=== PATIENT | male | born 1955 | race Caucasian/White ===

== ENCOUNTER → 2016-06-25 | Outpatient (REF) | payer MEDICARE, MEDICAID ==
[~2016-06-25] MED LIST: /LOR25TA PO; ASPI81TA85 PO; BACL10TA2 PO; CARBAMAZEPINE PO; CENTTAB12 PO; CENTTAB16 PO; COLA50CA3 PO; CYMB60CA3 PO; FOLI1TAB86 PO; IBUP200C PO; LEVE500T2 PO; MULTCAP PO; OMEP20CA3 PO; OYSCTAB PO; PERC7.5T12 PO; SERT-141 PO; TAMS0.4C PO; TEGR200T PO; TYLE325T5 PO; VESI5TAB PO
== END ==
LOC: M LAB REF 16:38
PROVIDERS: ATTEND Nurse Practitioner Adult Health
DX: R56.9 Unspecified convulsions (principal)

== ENCOUNTER → 2016-09-07 | Outpatient (CLI) | payer MEDICARE, MEDICAID | LOC: M WUC 14:49 | PROVIDERS: ATTEND Nurse Practitioner Adult Health | DX: M25.561 Pain in right knee (principal) ==

== ENCOUNTER → 2016-09-30 | Outpatient (CLI) | payer MEDICARE, MEDICAID ==
--- NOTE | 2016-09-30 15:40 | REP ---
RIGHT WRIST, FOUR VIEWS: HISTORY: Pain. There is a nondisplaced intra-articular fracture of the distal radius. There is no dislocation. There is narrowing of the radial carpal joint space. Ossified densities are present adjacent to the distal ulna. These represent old avulsion fracture fragments or ligamentous or tendon calcification. IMPRESSION: Fracture of the distal radius. Signed by Vish Peña MD 09/30/2016 03:51 P
--- NOTE | 2016-10-06 17:05 | REP ---
RIGHT FOREARM: Two views of the right forearm are performed. They are submitted to fl for dictation 10/06/2016. There is a nondisplaced fracture of the distal radius. No other acute fracture or dislocation is seen. IMPRESSION: Nondisplaced fracture, distal end of the radius. Signed by Alfred Cutler MD 10/07/2016 03:48 P
== END ==
LOC: M WUC 14:47
PROVIDERS: ATTEND Nurse Practitioner Adult Health
DX: S52.509A Unspecified fracture of the lower end of unspecified radius, initial encounter for closed fracture (principal); W18.30XA Fall on same level, unspecified, initial encounter; Y92.009 Unspecified place in unspecified non-institutional (private) residence as the place of occurrence of the external cause

== ENCOUNTER → 2017-02-16 | Outpatient (REF) | payer MEDICARE, MEDICAID | LOC: M LAB REF 17:45 | PROVIDERS: ATTEND Nurse Practitioner Adult Health | DX: R56.9 Unspecified convulsions (principal) ==

== ENCOUNTER → 2017-09-23 | Outpatient (REF) | payer MEDICARE, MEDICAID ==
[2017-09-23 19:10] LABS: CARBAMAZEPINE (TEGRETOL) LEVEL 7.8 UG/ML (4.0-10.0)
[2017-09-26 15:40] LABS: LEVETIRACETAM (KEPPRA) 9.2 ug/mL (10.0-40.0)
== END ==
LOC: M LAB REF 17:09
DX: R56.9 Unspecified convulsions (principal)
CPT/HCPCS: 80156

== ENCOUNTER → 2018-12-13 | Outpatient (CLI) | payer MEDICARE, MEDICAID ==
[2018-12-13 17:18] LABS: BLOOD UREA NITROGEN 14 MG/DL (7-18); CALCIUM LEVEL 9.5 MG/DL (8.8-10.2); CARBON DIOXIDE LEVEL 30 MEQ/L (21-32); CHLORIDE LEVEL 101 MEQ/L (98-107); CREATININE FOR GFR 0.67 MG/DL (0.70-1.30); GLOMERULAR FILTRATION RATE > 60.0 (>49); GLUCOSE, FASTING 89 MG/DL (70-100); POTASSIUM SERUM 4.5 MEQ/L (3.5-5.1); SODIUM LEVEL 140 MEQ/L (136-145)
[2018-12-13 19:24] LABS: APPEARANCE, URINE HAZY (CLEAR); BACTERIA, URINE AUTO NEGATIVE (NEGATIVE); BILIRUBIN, URINE AUTO NEGATIVE (NEGATIVE); BLOOD, URINE BLOOD NEGATIVE (NEGATIVE); COLOR, URINE YELLOW (YELLOW); GLUCOSE, URINE (UA) AUTO NEGATIVE (NEGATIVE); KETONE, URINE AUTO NEGATIVE (NEGATIVE); LEUKOCYTE ESTERASE, URINE AUTO NEGATIVE (NEGATIVE); MUCUS, URINE SMALL (NEGATIVE); NITRITE, URINE AUTO NEGATIVE (NEGATIVE); PROTEIN, URINE AUTO NEGATIVE (NEGATIVE); RBC, URINE AUTO 0 /HPF (0-3); SPECIFIC GRAVITY URINE AUTO 1.019 (1.002-1.035); SQUAMOUS EPITHELIAL CELL UR AU 1 /HPF (0-6); TRIPLE PHOSPHATE CRYSTALS SMALL; UROBILINOGEN, URINE AUTO 0.2 mg/dL (0.0-2.0); WBC, URINE AUTO 1 /HPF (0-3)
== END ==
LOC: M SMT 13:47
PROVIDERS: ATTEND Nurse Practitioner Family
DX: R31.9 Hematuria, unspecified (principal)
CPT/HCPCS: 36415; 80048; 81001; 87086; 88108; G0463

== ENCOUNTER → 2018-12-18 | Outpatient (CLI) | payer MEDICARE, MEDICAID ==
[~2018-12-18] MED LIST changes: +ISOVUE-370 76% 100ML VIAL (Q9967) As Ordered ONE
--- NOTE | 2018-12-18 13:50 | REP ---
CT of the abdomen pelvis without and with IV contrast, without bowel contrast: After IV contrast dual phase imaging is performed. CT urogram protocol. Comparison is 02/06/2013. There are no renal calculi. There is no hydronephrosis. There are no ureteral calculi. There are no bladder calculi. There are no solid or cystic renal masses. No bladder masses are identified by CT. The patient has clinical history of prostate carcinoma. 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 The the visualized lung quick are unremarkable. The hepatic parenchyma, gallbladder, pancreas, spleen, and adrenals are unremarkable and unchanged. The abdominal aorta is unremarkable. There is no periaortic adenopathy or mass. There is wall thickening of distal small bowel loops. This is compatible with enteritis in the appropriate clinical setting. The bowel loops and mesentery are otherwise unremarkable. Pelvis: The pelvic bowel loops are unremarkable. The patient reportedly has an appendectomy. The appendiceal stump is unremarkable. There is no pelvic ascites. There is no pelvic adenopathy. There are no lytic, blastic or destructive skeletal changes. There is degenerative disc disease throughout the lumbar spine. 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 There is no adenopathy or ascites. There are no masses. There is wall thickening of distal small bowel loops. This is compatible with enteritis in the appropriate clinical setting. There are no renal calculi. There are no ureteral or bladder calculi. There is no hydronephrosis. There are no solid or cystic renal masses. No bladder masses are identified. There are no lytic, blastic or destructive skeletal changes. There is degenerative disc disease throughout the lumbar spine. Electronically Signed by Alfred Garcia MD 12/18/2018 01:41 P
== END ==
LOC: M RAD 09:14
PROVIDERS: ATTEND Nurse Practitioner Family
DX: R31.9 Hematuria, unspecified (principal)
CPT/HCPCS: 74178; Q9967

== ENCOUNTER → 2019-01-11 | Outpatient (REF) | payer MEDICARE, MEDICAID ==
[~2019-01-11] MED LIST changes: +AMLO5TAB6 PO; +ASPI81CH33 PO; +ATOR1TAB21 PO; +CARB20TA PO; +CENT1TAB PO; +DULO1CAP6 PO; +FLOM0.4C39 PO; +FOLI1TAB11 PO; -ISOVUE-370 76% 100ML VIAL (Q9967) As Ordered ONE; +KEPP1TAB PO; +MULTTAB61 PO; +OMEP-218 PO; +OS-CTAB3 PO
== END ==
LOC: M LAB REF 17:24
PROVIDERS: ATTEND Nurse Practitioner Adult Health
DX: G40.909 Epilepsy, unspecified, not intractable, without status epilepticus (principal)

== ENCOUNTER 2019-02-02 10:41 | Day surgery (SDC) | payer MEDICARE, MEDICAID ==
[~2019-02-02] VITALS: Ht 165.1 cm; Wt 112.0 kg
[~2019-02-02 10:41] MED LIST changes: +LR 1,000 ML IV ONE; +ceFAZolin SOD 2 GM in IV 1 EA IV ONE
[2019-02-02] MEDS ORDERED: ONDANSETRON 4MG/2ML VIAL (J2405) As Ordered ONE (13:53)
[2019-02-02] MEDS ORDERED: dexameTHASONE 4 MG/ML 1ML VIAL (J1100) As Ordered ONE (13:53)
[2019-02-02] MEDS ORDERED: LIDOCAINE 2% INJ 100 MG/5 ML SDV (FOR ANES.) As Ordered ONE (13:53)
[2019-02-02] MEDS ORDERED: PROPOFOL 200 MG/20 ML VIAL As Ordered ONE (13:53)
[2019-02-02] MEDS ORDERED: MIDAZOLAM INJ 2 MG/2 ML VIAL (J2250) As Ordered ONE (13:55)
[2019-02-02] MEDS ORDERED: fentaNYL 100 MCG/2 ML INJECTION (J3010) As Ordered ONE (13:56)
[2019-02-02] MEDS ORDERED: BUPIVACAINE HCL 0.25% 30 ML VIAL As Ordered ONE (14:27)
[2019-02-02] MEDS ORDERED: PHENYLephrine HCL 500 MCG/5 ML (100MCG/ML) SYRINGE (J2370) As Ordered ONE (15:11)
[2019-02-02] MEDS ORDERED: ePHEDrine SULFATE 25 MG/5 ML(5MG/ML) SYRINGE As Ordered ONE (15:15)
[2019-02-02] MEDS ORDERED: LR 1,000 ML IV SCH (16:00)
[2019-02-02] MEDS ORDERED: PERCOCET 5MG/325MG TAB PO PRN (16:00)
[2019-02-02] MEDS ORDERED: IBUPROFEN 600 MG TAB PO PRN (16:00)
[2019-02-02] MEDS ORDERED: NS 1,000 ML IV SCH (16:00)
[2019-02-02] MEDS ORDERED: ONDANSETRON 4MG/2ML VIAL (J2405) IV PRN (16:00)
[2019-02-02] MEDS ORDERED: fentaNYL 100 MCG/2 ML INJECTION (J3010) IV PRN (16:00)
[2019-02-02 16:10] VITALS: BP 148/65
--- NOTE | 2019-02-05 08:53 | RO ---
DATE OF SURGERY: 02/02/2019 PREOPERATIVE DIAGNOSIS: Phimosis. POSTOPERATIVE DIAGNOSIS: Phimosis. PROCEDURE: Circumcision. SURGEON: Dr. Guanaco Haque TRY ON BASTER: ANESTHESIA: Local Marcaine. INDICATION FOR OPERATION: This is a 63year-old white male with severe phimosis, and therefore, brought to the operating room for circumcision. DESCRIPTION OF OPERATION: The patient was placed on the table in the supine position and given general anesthesia. He was then prepped with Betadine paint and draped in a sterile manner. Time-out was then performed. A hemostat was passed down the phimotic opening of the foreskin and clamped in the dorsal midline. An incision was then made and the skin was able to be retracted and the area cleansed. Foreskin was then reduced and the dorsal clamp line was extended and cut. A ventral clamp line was similarly made to the frenulum and incised. The excess foreskin was then removed with curved Morris scissors. Hemostasis was achieved with cauterization and #3-0 chromic ties. The skin edges were then approximated with interrupted with sutures of #3-0 chromic and the penis was anesthetized with 0.25% Marcaine without epinephrine. A Xeroform and Kerlix dressing was applied, and the patient was awakened and sent to recovery room in stable condition having tolerated procedure well. DRAINS: None. ESTIMATED BLOOD LOSS: 10 mL TRANSFUSION: None. COMPLICATIONS: None MTDD
== END 2019-02-02 17:10 | disposition home or self-care (01) ==
LOC: M SDC 10:41
PROVIDERS: ATTEND Urology
DX: N47.1 Phimosis (principal); G47.33 Obstructive sleep apnea (adult) (pediatric); I10 Essential (primary) hypertension; K21.9 Gastro-esophageal reflux disease without esophagitis; G40.909 Epilepsy, unspecified, not intractable, without status epilepticus; E66.01 Morbid (severe) obesity due to excess calories; Z68.41 Body mass index [BMI] 40.0-44.9, adult; F32.9 Major depressive disorder, single episode, unspecified; E78.00 Pure hypercholesterolemia, unspecified; M19.90 Unspecified osteoarthritis, unspecified site; Z85.46 Personal history of malignant neoplasm of prostate; M48.061 Spinal stenosis, lumbar region without neurogenic claudication; M47.816 Spondylosis without myelopathy or radiculopathy, lumbar region; Z86.718 Personal history of other venous thrombosis and embolism; Z86.61 Personal history of infections of the central nervous system; Z79.899 Other long term (current) drug therapy; Z79.82 Long term (current) use of aspirin
CPT/HCPCS: 54161; 88302; J0690; J1100; J2250; J2370; J2405; J3010

== ENCOUNTER → 2019-03-02 | Outpatient (REF) | payer MEDICARE, MEDICAID ==
[~2019-03-02] MED LIST changes: -LR 1,000 ML IV ONE; -ceFAZolin SOD 2 GM in IV 1 EA IV ONE
[2019-03-02 18:38] LABS: APPEARANCE, URINE HAZY (CLEAR); BACTERIA, URINE AUTO NEGATIVE (NEGATIVE); BILIRUBIN, URINE AUTO NEGATIVE (NEGATIVE); BLOOD, URINE BLOOD NEGATIVE (NEGATIVE); CALCIUM OXALATE CRYSTALS LARGE; COLOR, URINE YELLOW (YELLOW); GLUCOSE, URINE (UA) AUTO NEGATIVE (NEGATIVE); KETONE, URINE AUTO TRACE mg/dL (NEGATIVE); LEUKOCYTE ESTERASE, URINE AUTO NEGATIVE (NEGATIVE); MUCUS, URINE SMALL (NEGATIVE); NITRITE, URINE AUTO NEGATIVE (NEGATIVE); PROTEIN, URINE AUTO NEGATIVE (NEGATIVE); RBC, URINE AUTO 0 /HPF (0-3); SPECIFIC GRAVITY URINE AUTO 1.027 (1.002-1.035); SQUAMOUS EPITHELIAL CELL UR AU 0 /HPF (0-6); UROBILINOGEN, URINE AUTO 0.2 mg/dL (0.0-2.0); WBC, URINE AUTO 0 /HPF (0-3)
== END ==
LOC: M SMT 17:17
PROVIDERS: ATTEND Nurse Practitioner Family
DX: R39.15 Urgency of urination (principal)
CPT/HCPCS: 51798; 81001; 87086; G0463

== ENCOUNTER → 2020-01-07 | Outpatient (REF) | payer MEDICARE, MEDICAID ==
[~2020-01-07] MED LIST changes: +AMLO1TAB24 PO; -AMLO5TAB6 PO
[2020-01-07 18:57] LABS: EOSINOPHILS 1 % (0-3); LYMPHOCYTES 14 % (16-44); MONOCYTES 4 % (0-5); NEUTROPHILS 81 % (28-66)
[2020-01-07 18:58] LABS: PLATELET ESTIMATE NORMAL (NORMAL)
== END ==
LOC: M LAB REF 16:10
PROVIDERS: ATTEND Nurse Practitioner Adult Health
DX: C61 Malignant neoplasm of prostate (principal); G47.33 Obstructive sleep apnea (adult) (pediatric); G40.909 Epilepsy, unspecified, not intractable, without status epilepticus

== ENCOUNTER → 2020-05-14 | Outpatient (REF) | payer MEDICARE, MEDICAID ==
[2020-05-14 17:43] LABS: TOTAL PROTEIN 7.8 GM/DL (6.4-8.2)
[2020-05-16 14:28] LABS: ALBUMIN 4.17 GM/DL (3.29-5.55); ALBUMIN % 53.5 % (55.8-66.1); ALPHA-1-GLOBULIN % 4.5 % (2.9-4.9); ALPHA-1-GLOBULINS 0.35 GM/DL (0.17-0.41); ALPHA-2-GLOBULINS 1.01 GM/DL (0.42-0.99); BETA-1-GLOBULINS 0.41 GM/DL (0.28-0.60); BETA-1-GLOBULINS % 5.3 % (4.7-7.2); BETA-2-GLOBULINS 0.58 GM/DL (0.19-0.55); BETA-2-GLOBULINS % 7.4 % (3.2-6.5); GAMMA GLOBULIN % 16.3 % (11.1-18.8); GAMMA GLOBULINS 1.27 GM/DL (0.65-1.58)
== END ==
LOC: M LAB REF 16:26
PROVIDERS: ATTEND Nurse Practitioner Adult Health
DX: D47.2 Monoclonal gammopathy (principal); G40.909 Epilepsy, unspecified, not intractable, without status epilepticus

== ENCOUNTER → 2020-08-21 | Outpatient (REF) | payer MEDICARE, MEDICAID | LOC: M LAB REF 17:27 | PROVIDERS: ATTEND Nurse Practitioner Adult Health | DX: G40.909 Epilepsy, unspecified, not intractable, without status epilepticus (principal) ==

== ENCOUNTER → 2021-08-18 | Outpatient (REF) | payer MEDICARE, MEDICAID ==
[~2021-08-18] MED LIST changes: +OMEP-173 PO; -OMEP-218 PO
== END ==
LOC: M LAB REF 16:27
PROVIDERS: ATTEND Nurse Practitioner Adult Health
DX: G40.909 Epilepsy, unspecified, not intractable, without status epilepticus (principal)